=== PATIENT | female | born 1955 | race Hispanic/Latino ===

== ENCOUNTER 2018-02-21 08:10 | Day surgery (SDC) | payer OTHER ==
[~2018-02-21] VITALS: Ht 165.1 cm; Wt 127.0 kg
[~2018-02-21 08:10] MED LIST: GABA-531 PO
[2018-02-21] MEDS ORDERED: SODIUM CHLORIDE 0.9% 1000ML 1,000 ML IV ONE (08:54)
[2018-02-21] MEDS ORDERED: SUCCINYLCHOLINE CHLORIDE 20 MG/ML 10 ML VIAL ONE (09:08)
[2018-02-21] MEDS ORDERED: PROPOFOL 10 MG/ML 20ML VIAL IV ONE ×3 (09:08→10:06)
[2018-02-21] MEDS ORDERED: GLYCOPYRROLATE 0.2 MG/ML 5 ML VIAL ONE (09:09)
[2018-02-21] MEDS ORDERED: LIDOCAINE HCL 2% 20ML ONE (09:09)
[2018-02-21 09:19] VITALS: BP 150/83
[2018-02-21 10:20] VITALS: BP 106/71
[2018-02-21 10:39] VITALS: BP 120/75
== END 2018-02-21 10:51 | disposition home or self-care (01) ==
LOC: DAH 08:10 → ENDO 08:10
PROVIDERS: ATTEND Internal Medicine Gastroenterology
DX: K63.5 Polyp of colon (principal); J45.909 Unspecified asthma, uncomplicated; I10 Essential (primary) hypertension; E66.01 Morbid (severe) obesity due to excess calories; Z90.710 Acquired absence of both cervix and uterus; Z68.42 Body mass index [BMI] 45.0-49.9, adult; Z80.0 Family history of malignant neoplasm of digestive organs; M54.16 Radiculopathy, lumbar region
CPT/HCPCS: 45380; A4606; J0330; J2704 ×3; J3490; J7030

== ENCOUNTER 2024-02-22 08:50 | Day surgery (SDC) | payer OTHER ==
[2024-02-22] VITALS (12 sets, daily range): BP systolic 86–130; BP diastolic 41–83; PULSE 60–80; RESP 12–20
[~2024-02-22] VITALS: Ht 162.6 cm; Wt 132.4 kg
[~2024-02-22 08:50] MED LIST changes: +OLMESARTAN PO
[2024-02-22] MEDS: 0.9%NACL 1000ML 1,000 ML IV ONE (10:45)
[2024-02-22] MEDS ORDERED: PROPOFOL 10 MG/ML 20ML VIAL IV ONE ×3 (12:47→13:08)
== END 2024-02-22 14:30 | disposition home or self-care (01) ==
LOC: ENDO 08:50 → DAH 08:50 → ENDO 14:30
PROVIDERS: ATTEND Internal Medicine Gastroenterology
DX: K59.00 Constipation, unspecified (principal); J45.998 Other asthma; E66.01 Morbid (severe) obesity due to excess calories; Z68.43 Body mass index [BMI] 50.0-59.9, adult; Z86.010 Personal history of colon polyps; Z80.0 Family history of malignant neoplasm of digestive organs; Z90.710 Acquired absence of both cervix and uterus
CPT/HCPCS: 45378; J7030; J2704 ×3; A4620; A4215 ×2; A4223; A4222; A4221; A4663; A4606; G0105; J3490